=== PATIENT | female | born 1950 | race Caucasian/White ===

== ENCOUNTER → 2016-09-27 | Outpatient (CLI) | payer BC ==
--- NOTE | 2016-09-27 10:49 | XR ---
EXAMINATION TYPE: XR chest 2V DATE OF EXAM: 09/27/2016 10:42 AM COMPARISON: NONE TECHNIQUE: PA and lateral views submitted. HISTORY: Productive cough FINDINGS: The lungs are clear and there is no pneumothorax, pleural effusion, or focal pneumonia. Calcified g ranuloma noted in the left upper lobe. Surgical clips in the abdomen. IMPRESSION: 1. No acute process.
== END | disposition home or self-care (01) ==
LOC: RADXRMAIN 10:20
PROVIDERS: ATTEND Internal Medicine
DX: J06.9 Acute upper respiratory infection, unspecified (principal)
CPT/HCPCS: 71020

== ENCOUNTER → 2016-10-21 | Outpatient (CLI) | payer BC ==
[2016-10-21 10:27] LABS: ALT 25 U/L (9-52); AST 28 U/L (14-36); Alkaline Phosphatase 65 U/L (38-126); Anion Gap 12 mmol/L; Blood Urea Nitrogen 16 mg/dL (7-17); Calcium 9.6 mg/dL (8.4-10.2); Carbon Dioxide 27 mmol/L (22-30); Chloride 104 mmol/L (98-107); Cholesterol 196 mg/dL (<200); Glucose 84 mg/dL (74-99); HDL Cholesterol 76 mg/dL (40-60); Non-African American GFR(MDRD) >60 (>60 ml/min/1.73 sqM); Potassium 4.4 mmol/L (3.5-5.1); Sodium 143 mmol/L (137-145); Total Bilirubin 0.6 mg/dL (0.2-1.3); Total Protein 7.3 g/dL (6.3-8.2); Triglycerides 162 mg/dL (<150)
== END | disposition home or self-care (01) ==
LOC: LABWHC1 09:55
PROVIDERS: ATTEND Internal Medicine
DX: I10 Essential (primary) hypertension (principal); E78.2 Mixed hyperlipidemia
CPT/HCPCS: 36415; 80053; 80061

== ENCOUNTER → 2016-12-27 | Outpatient (CLI) | payer BC ==
--- NOTE | 2016-12-27 15:23 | US ---
EXAMINATION TYPE: US venous doppler duplex LE LT DATE OF EXAM: 12/27/2016 3:01 PM COMPARISON: NONE CLINICAL HISTORY: 729.81 SWELLING OF LIMB, R22.42. SIDE PERFORMED: Left TECHNIQUE: The lower extremity deep venous system is examined utilizing real time linear array sonog maris with graded compression, doppler sonography and color-flow sonography. VESSELS IMAGED: External Iliac Vein (EIV) Common Femoral Vein Deep Femoral Vein Greater Saphenous Vein * Femoral Vein Popliteal Vein Proximal Calf Veins (* superficial vessels) Left Leg: Negative for DVT IMPRESSION: 1. Left lower extremity negative for deep venous thrombosis.
== END | disposition home or self-care (01) ==
LOC: RADUSWWP 14:29
PROVIDERS: ATTEND Internal Medicine
DX: R22.42 Localized swelling, mass and lump, left lower limb (principal)

== ENCOUNTER → 2018-11-28 | Outpatient (CLI) | payer MEDICARE, OTHER ==
--- NOTE | 2018-11-29 12:22 | MM ---
Reason for exam: screening (asymptomatic). Last mammogram was performed 1 year and 4 months ago. History: Patient is postmenopausal. Took estrogen for 22 years beginning at age 44. Physical Findings: A clinical breast exam by your physician is recommended on an annual basis and results should be correlated with mammographic findings. MG Screening Mammo w CAD Bilateral CC and MLO view(s) were taken. XCCL view(s) were taken of the left breast. Prior study comparison: July 31, 2017, bilateral MG screening mammo w CAD. June 15, 2016, bilateral MG screening mammo w CAD. There are scattered fibroglandular densities. There is no discrete abnormality. No significant changes when compared with prior studies. ASSESSMENT: Negative, BI-RAD 1 RECOMMENDATION: Routine screening mammogram of both breasts in 1 year.
== END ==
LOC: RADMAMWWP 10:51
PROVIDERS: ATTEND Internal Medicine
DX: Z12.31 Encounter for screening mammogram for malignant neoplasm of breast (principal)
CPT/HCPCS: 77067

== ENCOUNTER → 2021-06-10 | Outpatient (CLI) | payer MEDICARE, OTHER ==
[2021-06-10 21:27] LABS: Basophils # (A) 0.06 X 10*3/uL (0.00-0.10); Basophils % (A) 0.5 %; Eosinophils # (A) 0.16 X 10*3/uL (0.04-0.35); Eosinophils % (A) 1.4 %; HCT 43.3 % (37.2-46.3); Lymphocytes # (A) 2.73 X 10*3/uL (0.90-5.00); Lymphocytes % (A) 24.2 %; MCHC 32.3 g/dL (32.0-37.0); MCV 92.7 fL (80.0-97.0); Mean Platelet Volume 10.8 fL (9.5-12.2); Monocytes # (A) 0.81 X 10*3/uL (0.20-1.00); Monocytes % (A) 7.2 %; Neutrophils # (A) 7.46 X 10*3/uL (1.80-7.70); Neutrophils % (A) 66.3 %; Platelet Count 309 X 10*3/uL (140-440); RBC 4.67 X 10*6/uL (4.10-5.20); RDW 13.3 % (11.5-14.5); WBC 11.26 X 10*3/uL (4.50-10.00)
== END | disposition home or self-care (01) ==
LOC: LABWHC1 12:38
PROVIDERS: ATTEND Internal Medicine
DX: E78.5 Hyperlipidemia, unspecified (principal)
CPT/HCPCS: 36415; 85025

== ENCOUNTER → 2021-09-29 | Outpatient (CLI) | payer MEDICARE, OTHER ==
--- NOTE | 2021-09-29 15:24 | BD ---
EXAMINATION TYPE: Axial Bone Density DATE OF EXAM: 09/29/2021 COMPARISON: 05.09.2012 CLINICAL HISTORY: 71 YR OLD FEMALE.....ICD-10 CODE: M85.80 OSTEOPOROSIS Height: 60 Weight: 171 FRAX RISK QUESTIONS: Family History (Parent hip fracture): YES Glucocorticoids (More than 3mos): YES (Ex: prednisone, prednisolone, methylprednisolone, dexamethasone, and hydrocortisone). Secondary Osteoporosis: YES 3. Menopause before 45: YES Current Tobacco Use: YES RISK FACTORS HISTORY OF: Family History of Osteoporosis: YES, MOTHER WITH HIP REPLACEMENTS Postmenopausal woman: YES, AT AGE 44 YRS OLD, TOTAL HYST Take estrogen and/or progesterone medications: YES, PREMARIN FOR 27 YEARS NOW, STILL ON THEM Hyperparathyroidism: NO Adrenal Insufficiency: NO MEDICATIONS: Prednisone or other steroids: YES, PREDNISONE, ON AND OFF ALL THE TIME, BOTH ORAL AND INJECTIONS, SKI N CONDITION Additional Medications: BP MEDS, STATINS FOR CHOLESTEROL, VIT D3, ASPIRIN DAILY Additional History: HYPERTENSION, CHOLESTEROL, SKIN CONDITION, EXAM MEASUREMENTS: Bone mineral densitometry was performed using the [employer] System. Bone mineral density as measured about the Lumbar spine is: ----- L1-L4(G/cm2): 1.276 T Score Values are as follows: ----- L1: -0.5 ----- L2: 0.6 ----- L3: 0.3 ----- L4: 2.3 ----- L1-L4: 0.8 Bone mineral density has: Increased 10.8% since study of: 05.09.2012 Bone mineral density about the R hip (g/cm2): 0.889 Bone mineral density about the L hip (g/cm2): 0.884 T Score values are as follows: -----R Neck: -2.1 -----L Neck: -1.5 -----R Total: -0.9 -----L Total: -1.0 Bone mineral density has: Increased 13.1% since study of: 05.09.2012 FRAX%s: THERE IS A 32.7% CHANCE FOR A MAJOR OSTEOPOROTIC FX AND A 17.0% FOR HER HIPS......PROBABIL ITY FOR FX IN 10 YRS TIME IMPRESSION: No evidence for osteoporosis or osteopenia at this time. NOTE: T-SCORE=SD OF THE YOUNG ADULT MEAN.
--- NOTE | 2021-10-01 11:44 | MM ---
Reason for exam: screening (asymptomatic). Last mammogram was performed 2 years and 10 months ago. History: Patient is postmenopausal. Took estrogen for 24 years 10 months beginning at age 44. Physical Findings: A clinical breast exam by your physician is recommended on an annual basis and results should be correlated with mammographic findings. MG 3D Screening Mammo W/Cad Bilateral CC, MLO, and XCCL view(s) were taken. Prior study comparison: November 28, 2018, bilateral MG screening mammo w CAD. July 31, 2017, bilateral MG screening mammo w CAD. There are scattered fibroglandular densities. No significant changes when compared with prior studies. ASSESSMENT: Negative, BI-RAD 1 RECOMMENDATION: Routine screening mammogram of both breasts in 1 year.
== END | disposition home or self-care (01) ==
LOC: RADMAMWWP 12:56
PROVIDERS: ATTEND Internal Medicine
DX: Z12.31 Encounter for screening mammogram for malignant neoplasm of breast (principal); Z78.0 Asymptomatic menopausal state
CPT/HCPCS: 77063; 77067; 77080

== ENCOUNTER → 2021-10-08 | Outpatient (CLI) | payer MEDICARE, OTHER ==
--- NOTE | 2021-10-12 14:02 | PE ---
Nuclear medicine PET/CT HISTORY: Solitary pulmonary nodule, initial Patient received 7.1 mCi F-18 FDG intravenously in delayed scanning was performed from the skull base to the mid thighs. Localization and attenuation correction CT scan was performed. No comparisons Average mediastinal uptake approximately SUV 2.4, liver SUV 4.1 : No cervical or supraclavicular adenopathy. CHEST: Right axillary lymph node shows associated hypermetabolic uptake. SUV is 3.7. Right lower lobe lung nodule measures approximately 17 mm. SUV is 2.0. There is no mediastinal or hilar adenopathy. No endobronchial lesion, pleural or pericardial effusion . ABDOMEN: There is no liver mass or adrenal mass. No retroperitoneal adenopathy or ascites. Patient is post cholecystectomy. No suspicious uptake. Uptake along the bowel is felt likely to be physiologic. Diverticular changes associated with the sigmoid colon. Uterus and adnexal structures are not seen. No pelvic adenopathy or free fluid. IMPRESSION: Right axillary uptake is indeterminate, findings could be reactive, correlate. Right lowe r lobe lung nodule as described.
== END | disposition home or self-care (01) ==
LOC: RADPETMAIN 13:26
PROVIDERS: ATTEND Internal Medicine
DX: R91.1 Solitary pulmonary nodule (principal)
CPT/HCPCS: 78815; A9552

== ENCOUNTER → 2022-06-02 | Outpatient (CLI) | payer MEDICARE, OTHER ==
--- NOTE | 2022-06-02 14:32 | CT ---
EXAMINATION TYPE: CT chest wo con CT DLP: 362.8 mGycm, Automated exposure control for dose reduction was used. DATE OF EXAM: 06/02/2022 1:37 PM COMPARISON: PET CT 10/08/2021. CLINICAL INDICATION:Female, 71 years old with history of R91.1 Solitary pulmonary nodule; TECHNIQUE: Multiple axial images were obtained through the chest without IV contrast. Lack of IV or o ral contrast limits evaluation of solid and hollow organ viscera. Coronal and sagittal reformats revi ewed. FINDINGS: LUNGS/ PLEURA: No pneumothorax, pleural effusion, focal consolidation. Stable right lower lobe 1.6 cm and 0.2 cm pulmonary nodules (series 4, image 32). No new or enlarging pulmonary nodules. AIRWAY: Patent and unremarkable.. HEART: Size within normal limits. No pericardial effusion. MEDIASTINUM: No gross evidence of adenopathy. VASCULATURE: No aortic aneurysm. Atherosclerotic calcification of the aorta. MUSCULOSKELETAL: No acute osseous abnormalities. Mild degenerative disc disease. SOFT TISSUES/LYMPH NODES: Unremarkable. LOWER NECK: No significant findings. UPPER ABDOMEN: Post cholecystectomy. IMPRESSION: Stable right lower lobe pulmonary nodules. No new or enlarging pulmonary nodules. Follow-up CT chest examination in 6-12 months is recommended.
--- NOTE | 2022-06-07 08:56 | US ---
EXAMINATION TYPE: US arterial LE single level DATE OF EXAM: 06/02/2022 1:06 PM CLINICAL HISTORY: I73.9 PAD. Left foot tingling and tightness. Doppler Waveforms: Right: Multiphasic Left: Multiphasic: Pressure Gradients: No significant gradient Ankle-Brachial Indices: Right: 1.1 Left: 1.1 Toe Brachial Indices: Right: 0.7 Left: 0.6 IMPRESSION: Normal ankle-brachial index bilaterally
== END | disposition home or self-care (01) ==
LOC: RADUSWWP 12:10
PROVIDERS: ATTEND Internal Medicine
DX: I73.9 Peripheral vascular disease, unspecified (principal); R91.8 Other nonspecific abnormal finding of lung field
CPT/HCPCS: 71250; 93922

== ENCOUNTER → 2022-12-14 | Outpatient (CLI) | payer MEDICARE, OTHER ==
--- NOTE | 2022-12-14 13:36 | CT ---
EXAMINATION TYPE: CT chest wo con DATE OF EXAM: 12/14/2022 COMPARISON: Prior CT June 02, 2022 and PET/CT October 08, 2021 HISTORY: nodules CT DLP: 381.2 mGycm. Automated Exposure Control for Dose Reduction was Utilized. TECHNIQUE: CT scan of the thorax is performed without IV contrast. FINDINGS: LUNGS: Stable 1.5 x 1.4 cm right lower lobe central pulmonary nodule axial image 32 from prior 2 stud ies. Mild left basilar linear scarring redemonstrated. Mild right basilar linear scarring anteriorly also again seen. No new or enlarging greater than 5 mm pulmonary nodules. No pleural effusion or pneu mothorax noted bilaterally. MEDIASTINUM: Lack of IV contrast is noted to limit evaluation for mediastinal and especially hilar ad enopathy. There are stable prominent but subcentimeter mediastinal lymph nodes. No cardiomegaly or pericardial effusion is seen. Prominent main pulmonary artery redemonstrated. Coronary artery calcifi cation again seen. OTHER: Cholecystectomy clips are redemonstrated. IMPRESSION: Stable 1.5 cm right lower lobe nodule. No new or enlarging nodules. Consider repeat CT in one year time to document greater than 2 years stability.
== END | disposition home or self-care (01) ==
LOC: RADCTMAIN 12:43
PROVIDERS: ATTEND Internal Medicine
DX: R91.1 Solitary pulmonary nodule (principal)
CPT/HCPCS: 71250

== ENCOUNTER → 2022-12-14 | Outpatient (CLI) | payer MEDICARE, OTHER ==
--- NOTE | 2022-12-15 09:13 | MM ---
Reason for Exam: Screening (asymptomatic). Last mammogram was performed 1 year(s) and 3 month(s) ago. Patient History: Menarche at age 12. First Full-Term at age 23. Left ovary removed at age 43. Right ovary removed at age 43. Hysterectomy at age 43. Postmenopausal. Currently using Estrogen, beginning at age 44 for 24 years, 10 months. Risk Values: Rubia 5 year model risk: 1.6%. NCI Lifetime model risk: 4.1%. Prior Study Comparison: 07/31/2017 Bilateral Screening Mammogram, [facility]. 11/28/2018 Bilateral Screening Mammogram, [facility]. 09/29/2021 Bilateral Screening Mammogram, [facility]. Tissue Density: There are scattered fibroglandular densities. Findings: Analyzed By CAD. There are a few loosely grouped benign-appearing round calcifications in the anterior aspect of the bilateral breasts redemonstrated. There is no suspicious group of microcalcifications or new suspicious mass in either breast. Overall Assessment: Benign, BI-RAD 2 Management: Screening Mammogram of both breasts in 1 year. . Patient should continue monthly self-breast exams. A clinical breast exam by your physician is recommended on an annual basis. This exam should not preclude additional follow-up of suspicious palpable abnormalities. Note on Rubia scores and lifetime risk: 1. A Rubia score greater than 3% is considered moderate risk. If this is the case, consider specialist referral to assess eligibility for a risk reducing agent. 2. If overall lifetime risk for the development of breast cancer is 20% or higher, the patient may qualify for future screening with alternating mammogram and breast MRI. Electronically signed and approved by: Pradeep He M.D.
== END | disposition home or self-care (01) ==
LOC: RADMAMWWP 12:56
PROVIDERS: ATTEND Internal Medicine
DX: Z12.31 Encounter for screening mammogram for malignant neoplasm of breast (principal); Z78.0 Asymptomatic menopausal state
CPT/HCPCS: 77063; 77067

== ENCOUNTER → 2023-12-21 | Outpatient (CLI) | payer MEDICARE ==
--- NOTE | 2023-12-21 14:44 | CTL ---
EXAMINATION TYPE: CT Low Dose Lung DATE OF EXAM ORDERED: 12/21/2023 HISTORY: Lung cancer screening CT DLP: 115.[address] CTDI: 3.5 mGy Automated exposure control for dose reduction was used. COMPARISON: 12/14/2022 TECHNIQUE: Low dose computed tomography scan was performed through the chest at 1 mm thick sections a nd reconstructed images in multiple planes at 1 mm and [address] DIAGNOSTIC QUALITY: Satisfactory FINDINGS: The well circumscribed 15 mm nodule right upper lobe is again seen and is stable. There 2 or 3 scatte red stable micronodules. There is no new suspicious lung mass or nodule. There is no abnormal airspace/consolidative density or abnormal interstitial density. There is no pleural effusion or pneumothorax. The great vessel the chest are normal and there is no mediastinal, hilar or axillary adenopathy. Limited scanning through the upper abdomen reveals cholecystectomy. No focal osseous lesions are seen. IMPRESSION: 1. Lung RADS category 2 benign findings. Continue routine screening at yearly intervals. 2. No acute cardiopulmonary disease
--- NOTE | 2023-12-21 16:49 | BD ---
EXAMINATION TYPE: Axial Bone Density DATE OF EXAM: 12/21/2023 CLINICAL HISTORY: 73 years old Female. ICD-10 CODE: M85.80 OT DISORDER OF BONE DENS Height: 60.25 Weight: 175 FRAX RISK QUESTIONS: Family History (Parent hip fracture): yes History of Fracture in Adulthood: no Secondary Osteoporosis: yes 3. Menopause before 45: yes 43 Current Tobacco Use: yes RISK FACTORS HISTORY OF: Surgery to Spine/Hip(right/left)/Wrist (right/left): no MEDICATIONS: Thyroid Medications: no Osteoporosis Medications: no EXAM MEASUREMENTS: Bone mineral densitometry was performed using the [employer] System. Bone mineral density as measured about the Lumbar spine is: ----- L1-L4(G/cm2): 1.169 T Score Values are as follows: ----- L1: -0.9 ----- L2: 0.5 ----- L3: -0.7 ----- L4: 0.4 ----- L1-L4: -0.1 Z Score Values are as follows: ----- L1: 0.3 ----- L2: 1.7 ----- L3: 0.6 ----- L4: 1.7 ----- L1-L4: 1.2 Bone mineral density has: Decreased -8.4% since study of: 09/29/2021 Bone mineral density about the R hip (g/cm2): 0.930 Bone mineral density about the L hip (g/cm2): 0.868 T Score values are as follows: -----R Neck: -1.9 -----L Neck: -1.7 -----R Total: -0.6 -----L Total: -1.1 Z Score values are as follows: -----R Neck: -0.3 -----L Neck: -0.2 -----R Total: 0.7 -----L Total: 0.2 Bone mineral density has: Increased 1.4% since study of: 09/29/2021 FRAX%s: The graph provided illustrates a 12.0% chance for a major osteoporotic fx and a 3.9% chance f or the hips probability for fx in 10 years time. IMPRESSION: Osteopenia (T Score between -2.5 and -1). There is slightly increased risk of fracture and the patient may be considered for treatment. Re-Screen 2-5 years. NOTE: T-SCORE=SD OF THE YOUNG ADULT MEAN.
--- NOTE | 2023-12-24 15:07 | MM ---
Reason for Exam: Screening (asymptomatic). Last screening mammogram was performed 12 month(s) ago. Patient History: Menarche at age 12. First Full-Term at age 23. Left ovary removed at age 43. Right ovary removed at age 43. Hysterectomy at age 43. Postmenopausal. Currently using Estrogen, beginning at age 44 for 24 years, 10 months. Risk Values: Rubia 5 year model risk: 1.6%. NCI Lifetime model risk: 3.9%. Prior Study Comparison: 11/28/2018 Bilateral Screening Mammogram, [facility]. 09/29/2021 Bilateral Screening Mammogram, [facility]. 12/14/2022 Bilateral MG 3D screening mammo w/cad, [facility]. Tissue Density: The breasts are almost entirely fatty. Findings: Analyzed By CAD. There is no suspicious group of microcalcifications or new suspicious mass in either breast. Overall Assessment: Negative, BI-RAD 1 Management: Screening Mammogram of both breasts in 1 year. . Patient should continue monthly self-breast exams. A clinical breast exam by your physician is recommended on an annual basis. This exam should not preclude additional follow-up of suspicious palpable abnormalities. Note on Rubia scores and lifetime risk: 1. A Rubia score greater than 3% is considered moderate risk. If this is the case, consider specialist referral to assess eligibility for a risk reducing agent. 2. If overall lifetime risk for the development of breast cancer is 20% or higher, the patient may qualify for future screening with alternating mammogram and breast MRI. Electronically signed and approved by: Marianna Bah M.D. Radiologist
== END | disposition home or self-care (01) ==
LOC: RADMAMWWP 12:42
PROVIDERS: ATTEND Internal Medicine
DX: Z12.31 Encounter for screening mammogram for malignant neoplasm of breast (principal); M85.89 Other specified disorders of bone density and structure, multiple sites; R91.1 Solitary pulmonary nodule; Z78.0 Asymptomatic menopausal state; F17.210 Nicotine dependence, cigarettes, uncomplicated
CPT/HCPCS: 71271; 77063; 77067; 77080

== ENCOUNTER → 2024-07-24 | Outpatient (CLI) | payer MEDICARE ==
--- NOTE | 2024-07-24 17:50 | US ---
EXAMINATION TYPE: US venous doppler duplex LE DATE OF EXAM: 07/24/2024 5:27 PM COMPARISON: NONE CLINICAL INDICATION: Female, 73 years old with history of M79.89 OTHER SPECIFIED SOFT TISSUE DISORDER S; Patient states ankle swelling. No pain. Pt has no hx dvt. Not on thinners, TECHNIQUE: The lower extremity deep venous system is examined utilizing real time linear array sonog maris with graded compression, color doppler sonography, and spectral doppler. SIDE PERFORMED: Bilateral FINDINGS: VESSELS IMAGED: Common Femoral Vein Deep Femoral Vein Greater Saphenous Vein * Femoral Vein Popliteal Vein Small Saphenous Vein * Proximal Calf Veins (* superficial vessels) Right Leg: Appears negative for DVT, Color Doppler imaging shows patency of the vessels. Spectral wa veforms are within normal limits. Left Leg: Appears negative for DVT, Color Doppler imaging shows patency of the vessels. Spectral wav eforms are within normal limits. IMPRESSION: 1. Bilateral lower extremity ultrasound negative for deep venous thrombosis [facility], , 07/24/2024 5:48 PM
== END | disposition home or self-care (01) ==
LOC: RADUSWWP 16:42
PROVIDERS: ATTEND Internal Medicine
DX: M79.89 Other specified soft tissue disorders (principal)
CPT/HCPCS: 93970

== ENCOUNTER → 2024-12-16 | Outpatient (CLI) | payer MEDICARE ==
--- NOTE | 2024-12-16 13:10 | XR ---
EXAMINATION TYPE: XR chest 2V DATE OF EXAM: 12/16/2024 12:47 PM COMPARISON: 09/27/[address] 12/14/2022 CLINICAL INDICATION: Female, 74 years old with history of J20.9 J42, cough and congestion TECHNIQUE: Frontal and lateral views FINDINGS: Heart normal size. Mild atherosclerotic arch calcifications. Mild central peribronchial cuffing. Poss ible nodular density at the medial right base. Otherwise, no consolidation or pleural effusion. Jyoti cystectomy clips. IMPRESSION: 1. COPD. Some central peribronchial cuffing could reflect bronchitis or asthma. 2. Stable underlying known nodule at the medial right base. [facility], Workstation: [facility], 12/16/2024 1:08 PM
== END | disposition home or self-care (01) ==
LOC: RADXRMAIN 12:06
PROVIDERS: ATTEND Internal Medicine
DX: J44.9 Chronic obstructive pulmonary disease, unspecified (principal); J20.9 Acute bronchitis, unspecified; R91.1 Solitary pulmonary nodule
CPT/HCPCS: 71046

== ENCOUNTER 2025-03-01 07:52 | Observation (INO) | payer MEDICARE ==
--- NOTE | 2025-03-01 08:21 | ED ---
General Adult HPI - General Chief complaint: Abdominal Pain Stated complaint: Abd pain, nausea Time Seen by Provider: 03/01/25 08:04 Source: patient, RN notes reviewed, old records reviewed Mode of arrival: ambulatory Limitations: no limitations - History of Present Illness Initial comments: Patient is a 74-year-old female who presents emergency department complaining of right lower quadrant abdominal pain. Has a history of a hysterectomy, hypertension, hyperlipidemia. States abdominal pain started at approximately 5:30 AM on 02/28/2025 which was over 24 hours ago. Has not improved. Has intermittent nausea with nonbilious nonbloody emesis as well as intermittent diarrhea with nonbloody diarrhea. Denies any urinary complaints. Denies any vaginal discharge or bleeding. Has no other acute complaints at this time. Also has a history of a cholecystectomy. Denies chest pain, shortness of breath, fevers, chills, cough. - Related Data Allergies Allergy/AdvReac Type Severity Reaction Status Date / Time acetaminophen Allergy Vomiting Verified 03/01/25 08:00 [From Darvocet-N 100] codeine Allergy Vomiting Verified 03/01/25 08:00 propoxyphene Allergy Vomiting Verified 03/01/25 08:00 [From Darvocet-N 100] Review of Systems ROS Statement: Those systems with pertinent positive or pertinent negative responses have been documented in the HPI. Review of Systems: CONST: Denies fever EYES: Denies blurry vision ENT: Denies nasal congestion C/V: Denies Chest pain RESP: Denies shortness of breath GI: Endorses abdominal pain : Denies dysuria SKIN: Denies rash. MSK: Denies joint pain. NEURO: Denies headache ROS Other: All systems not noted in ROS Statement are negative. Past Medical History Past Medical History: Hyperlipidemia, Hypertension Past Surgical History: Cholecystectomy, Hysterectomy Smoking Status: Current every day smoker General Exam - General Exam Comments Initial Comments: General: Appears in mild to moderate distress as she is actively having an episode of emesis. HEAD: Normal with no signs of head trauma. EYES: EOMI. ENT: Hearing grossly intact, normal oropharynx. RESPIRATORY: Clear breath sounds bilaterally. No wheezes, rales, or rhonchi. C/V: Regular rate and rhythm. S1 and S2 auscultated, no edema, peripheral pulses 2+ and intact throughout ABD: Abdomen soft, nondistended. Tender to palpation in the right lower quadrant. No guarding or rebound tenderness. No peritoneal signs. EXT: No obvious deformity. SKIN: No rashes or lesions observed on exposed skin. NEURO: Alert and oriented x 4. Limitations: no limitations Course Vital Signs 03/01/25 03/01/25 03/01/25 07:56 08:39 09:23 Temperature 97.6 F 97.6 F Pulse Rate 77 60 Respiratory 16 19 19 Rate Blood Pressure 163/70 152/92 O2 Sat by Pulse 95 96 Oximetry 03/01/25 10:10 Temperature Pulse Rate 63 Respiratory 17 Rate Blood Pressure 134/7 O2 Sat by Pulse 95 Oximetry Medical Decision Making - Medical Decision Making Was pt. sent in by a medical professional or institution (, PA, JAVA ARCHITECT, urgent care, hospital, or fdc...) When possible be specific @ -No Did you speak to anyone other than the patient for history (EMS, parent, family, police, friend...)? What history was obtained from this source @ -No Did you review nursing and triage notes (agree or disagree)? Why? @ -I reviewed and agree with nursing and triage notes Were old charts reviewed (outside hosp., previous admission, EMS record, old EKG, old radiological studies, urgent care reports/EKG's, fdc records)? Report findings @ -No old charts were reviewed Differential Diagnosis (chest pain, altered mental status, abdominal pain women, abdominal pain men, vaginal bleeding, weakness, fever, dyspnea, syncope, headache, dizziness, GI bleed, back pain, seizure, CVA, palpatations, mental health, musculoskeletal)? @ -Differential Abdominal Pain Women: Appendicitis, Cholecystitis, diverticulosis, ischemic bowel, pancreatitis, hepatitis, UTI, gastroenteritis, AAA, incarcerated hernia, bowel obstruction, constipation, inflammatory bowel, hepatitis, peptic ulcer disease, splenic infarction, perforated viscus, vulvitis, ovarian torsion, PID, kidney stone, placenta abruption, this is not meant to be an all-inclusive list EKG interpreted by me (3pts min.). @ -As above X-rays interpreted by me (1pt min.). @ -None done CT interpreted by me (1pt min.). @ -CT abdomen pelvis shows no obvious acute intra-abdominal process to explain the patient's current symptoms. U/S interpreted by me (1pt. min.). @ -None done What testing was considered but not performed or refused? (CT, X-rays, U/S, labs)? Why? @ -None What meds were considered but not given or refused? Why? @ -None Did you discuss the management of the patient with other professionals (professionals i.e. , PA, JAVA ARCHITECT, lab, RT, psych nurse, geriatric social work professor, dermatology nurse, teacher, strike warfare/missile systems officer, rn case manager hospice)? Give summary @ -I spoke with the admitting provider, Dr. Garza who accepted the admission. Was smoking cessation discussed for >3mins.? @ -No Was critical care preformed (if so, how long)? @ -No Were there social determinants of health that impacted care today? How? (Homelessness, low income, unemployed, alcoholism, drug addiction, transporta tion, low edu. Level, literacy, decrease access to med. care, correction, rehab)? @ -No Was there de-escalation of care discussed even if they declined (Discuss DNR or withdrawal of care, Hospice)? DNR status @ -No What co-morbidities impacted this encounter? (DM, HTN, Smoking, COPD, CAD, Cancer, CVA, ARF, Chemo, Hep., AIDS, mental health diagnosis, sleep apnea, morbid obesity)? @ -Hysterectomy, cholecystectomy Was patient admitted / discharged? Hospital course, mention meds given and route, prescriptions, significant lab abnormalities, going to OR and other pertinent info. @ -Presents with right lower quadrant abdominal pain. Will obtain CT abdomen pelvis as well as abdominal laboratory studies. Patient administered IV fluids, Zofran, Protonix, Toradol for symptomatic control. She was in agreement this plan. Vitals are within acceptable limits. Laboratory studies returned remarkable for elevated cell counts likely secondary to dehydration with lactic acid also slightly elevated likely secondary to dehydration. Patient administered additional IV fluids. Urinalysis negative. Remainder the labs relatively unremarkable. CT imaging obtained and showed no obvious acute intra-abdominal process to explain the patient's current symptoms. EKG shows no signs of acute ischemia. On reevaluation, patient has received multiple doses of analgesic medications. I discussed discharge versus admission and we will observe the patient for intractable abdominal pain with nausea vomiting diarrhea and dehydration. Will continue with IV fluids. Consult placed to surgery for input. Patient was in agreement this plan. I spoke with the admitting provider, Dr. Garza who accepted the admission. Undiagnosed new problem with uncertain prognosis? @ -No Drug Therapy requiring intensive monitoring for toxicity (Heparin, Nitro, Insulin, Cardizem)? @ -No Were any procedures done? @ -No Diagnosis/symptom? @ -Intractable abdominal pain, dehydration, nausea vomiting and diarrhea Acute, or Chronic, or Acute on Chronic? @ -Acute Uncomplicated (without systemic symptoms) or Complicated (systemic symptoms)? @ -Complicated Side effects of treatment? @ -None Exacerbation, Progression, or Severe Exacerbation] @ -No Poses a threat to life or bodily function? @ -Potentially, yes - Lab Data Result diagrams: 03/01/25 08:26 03/01/25 08:26 Lab Results 03/01/25 03/01/25 03/01/25 Range/Units 08:26 08:26 08:26 WBC 14.29 H (4.50-10.00) 10*3/uL RBC 5.41 H (4.10-5.20) 10*6/uL Hgb 16.4 H (12.0-15.0) g/dL Hct 47.0 H (37.2-46.3) % MCV 86.9 (80.0-97.0) fL MCH 30.3 (27.0-32.0) pg MCHC 34.9 (32.0-37.0) g/dL Plt Count 346 (140-440) 10*3/uL MPV 9.4 L (9.5-12.2) fL Immature Gran % (Auto) 0.6 % Neutrophils % 78.5 % Lymphocytes % 13.7 % Monocytes % 5.9 % Eosinophils % 0.8 % Basophils % 0.5 % Immature Gran # 0.08 H (0.00-0.04) 10*3/uL Neutrophils # 11.22 H (1.80-7.70) 10*3/uL Lymphocytes # 1.96 (0.90-5.00) 10*3/uL Monocytes # 0.84 (0.20-1.00) 10*3/uL Eosinophils # 0.12 (0.04-0.35) 10*3/uL Basophils # 0.07 (0.00-0.10) 10*3/uL PT 10.6 (10.0-12.5) sec INR 1.0 (<1.2) APTT 23.5 (22.0-30.0) sec Sodium 137 (137-145) mmol/L Potassium 3.4 L (3.5-5.1) mmol/L Chloride 96 L (98-107) mmol/L Carbon Dioxide 31 H (22-30) mmol/L Anion Gap 10 mmol/L BUN 16 (7-17) mg/dL Creatinine 0.74 (0.52-1.04) mg/dL Est GFR (CKD-EPI)AfAm >90 (>60 ml/min/1.73 sqM) Est GFR (CKD-EPI)NonAf 81 (>60 ml/min/1.73 sqM) Glucose 118 H (74-99) mg/dL Lactic Ac Sepsis Rflx Plasma Lactic Acid Ayan (0.7-2.0) mmol/L Calcium 9.8 (8.4-10.2) mg/dL Total Bilirubin 1.0 (0.2-1.3) mg/dL AST 33 (14-36) U/L ALT 18 (4-34) U/L Alkaline Phosphatase 89 (38-126) U/L Total Protein 7.6 (6.3-8.2) g/dL Albumin 4.5 (3.5-5.0) g/dL Amylase 62 (30-110) U/L Lipase 230 (23-300) U/L Urine Color Urine Appearance (Clear) Urine pH (5.0-8.0) Ur Specific [place] (1.001-1.035) Urine Protein (Negative) Urine Glucose (UA) (Negative) Urine Ketones (Negative) Urine Blood (Negative) Urine Nitrite (Negative) Urine Bilirubin (Negative) Urine Urobilinogen (<2.0) mg/dL Ur Leukocyte Esterase (Negative) Urine RBC (0-5) /hpf Urine WBC (0-5) /hpf Ur Squamous Epith Cells (0-4) /hpf Urine Mucus (None) /hpf 03/01/25 03/01/25 03/01/25 Range/Units 08:26 08:53 10:11 WBC (4.50-10.00) 10*3/uL RBC (4.10-5.20) 10*6/uL Hgb (12.0-15.0) g/dL Hct (37.2-46.3) % MCV (80.0-97.0) fL MCH (27.0-32.0) pg MCHC (32.0-37.0) g/dL Plt Count (140-440) 10*3/uL MPV (9.5-12.2) fL Immature Gran % (Auto) % Neutrophils % % Lymphocytes % % Monocytes % % Eosinophils % % Basophils % % Immature Gran # (0.00-0.04) 10*3/uL Neutrophils # (1.80-7.70) 10*3/uL Lymphocytes # (0.90-5.00) 10*3/uL Monocytes # (0.20-1.00) 10*3/uL Eosinophils # (0.04-0.35) 10*3/uL Basophils # (0.00-0.10) 10*3/uL PT (10.0-12.5) sec INR (<1.2) APTT (22.0-30.0) sec Sodium (137-145) mmol/L Potassium (3.5-5.1) mmol/L Chloride (98-107) mmol/L Carbon Dioxide (22-30) mmol/L Anion Gap mmol/L BUN (7-17) mg/dL Creatinine (0.52-1.04) mg/dL Est GFR (CKD-EPI)AfAm (>60 ml/min/1.73 sqM) Est GFR (CKD-EPI)NonAf (>60 ml/min/1.73 sqM) Glucose (74-99) mg/dL Lactic Ac Sepsis Rflx Y Plasma Lactic Acid Ayan 2.5 H* (0.7-2.0) mmol/L Calcium (8.4-10.2) mg/dL Total Bilirubin (0.2-1.3) mg/dL AST (14-36) U/L ALT (4-34) U/L Alkaline Phosphatase (38-126) U/L Total Protein (6.3-8.2) g/dL Albumin (3.5-5.0) g/dL Amylase (30-110) U/L Lipase (23-300) U/L Urine Color Colorless Urine Appearance Clear (Clear) Urine pH 6.0 (5.0-8.0) Ur Specific [place] 1.050 H (1.001-1.035) Urine Protein Negative (Negative) Urine Glucose (UA) Negative (Negative) Urine Ketones Negative (Negative) Urine Blood Trace H (Negative) Urine Nitrite Negative (Negative) Urine Bilirubin Negative (Negative) Urine Urobilinogen <2.0 (<2.0) mg/dL Ur Leukocyte Esterase Negative (Negative) Urine RBC 2 (0-5) /hpf Urine WBC <1 (0-5) /hpf Ur Squamous Epith Cells 1 (0-4) /hpf Urine Mucus Rare H (None) /hpf - EKG Data -: EKG Interpreted by Me EKG Comments: 12-lead Electrocardiogram Interpretation Note EKG was reviewed and interpreted by myself. 12-lead ECG performed at 0838 is interpreted by me as revealing normal sinus rhythm at a rate of 63 beats per minute. [place] is normal. SD interval is 165 ms, QRS durations 114 ms, QTc is 431 ms.. There were no ST or T wave abnormalities to suggest myocardial ischemia or injury. R wave progression across the precordium was satisfactory. By my interpretation this EKG is non-diagnostic for acute ischemia. Disposition Clinical Impression: Intractable abdominal pain, Dehydration, Nausea vomiting and diarrhea Disposition: ADMITTED IP TO THIS HOSP Condition: Stable Referrals: Drew Ghotra DO [Primary Care Provider] - 1-2 days Time of Disposition: 11:15
[2025-03-01] MEDS: SODIUM CHLORIDE 0.9% 1,000 ML IV ONE (08:31)
[2025-03-01] MEDS: KETOROLAC 15 MG/ML 1 ML VIAL IVP STA (08:31)
[2025-03-01] MEDS: ONDANSETRON 4 MG/2 ML VIAL IVP STA (08:33)
[2025-03-01] MEDS: PANTOPRAZOLE 40 MG/10 ML VIAL IVP STA (08:34)
[2025-03-01 08:37] LABS: Basophils # (A) 0.07 10*3/uL (0.00-0.10); Basophils % (A) 0.5 %; Eosinophils # (A) 0.12 10*3/uL (0.04-0.35); Eosinophils % (A) 0.8 %; HCT 47.0 % (37.2-46.3); HGB 16.4 g/dL (12.0-15.0); Lymphocytes # (A) 1.96 10*3/uL (0.90-5.00); Lymphocytes % (A) 13.7 %; MCH 30.3 pg (27.0-32.0); MCHC 34.9 g/dL (32.0-37.0); MCV 86.9 fL (80.0-97.0); Monocytes # (A) 0.84 10*3/uL (0.20-1.00); Monocytes % (A) 5.9 %; Neutrophils # (A) 11.22 10*3/uL (1.80-7.70); Neutrophils % (A) 78.5 %; Platelet Count 346 10*3/uL (140-440); RBC 5.41 10*6/uL (4.10-5.20); RDW 13.4 % (11.5-14.5); WBC 14.29 10*3/uL (4.50-10.00)
[2025-03-01 08:46] LABS: INR 1.0 (<1.2); Partial Thromboplastin Time 23.5 sec (22.0-30.0); Prothrombin Time 10.6 sec (10.0-12.5)
[2025-03-01 08:49] LABS: ALT 18 U/L (4-34); African American GFR (CKD) >90 (>60 ml/min/1.73 sqM); Albumin 4.5 g/dL (3.5-5.0); Amylase 62 U/L (30-110); Anion Gap 10 mmol/L; Blood Urea Nitrogen 16 mg/dL (7-17); Calcium 9.8 mg/dL (8.4-10.2); Carbon Dioxide 31 mmol/L (22-30); Chloride 96 mmol/L (98-107); Glucose 118 mg/dL (74-99); Lipase 230 U/L (23-300); Non-African American GFR(CKD) 81 (>60 ml/min/1.73 sqM); Sodium 137 mmol/L (137-145); Total Protein 7.6 g/dL (6.3-8.2)
[2025-03-01 08:51] LABS: Potassium 3.4 mmol/L (3.5-5.1)
[2025-03-01 08:52] LABS: AST 33 U/L (14-36); Alkaline Phosphatase 89 U/L (38-126)
[2025-03-01] MEDS: LACTATED RINGERS 1,000 ML IV ONE (09:23)
--- NOTE | 2025-03-01 09:29 | CT ---
EXAMINATION TYPE: CT abdomen pelvis w con CT DLP: 1186.6 mGycm, Automated exposure control for dose reduction was used. DATE OF EXAM: 03/01/2025 9:16 AM COMPARISON: PET CT 10/08/2021 CLINICAL INDICATION:Female, 74 years old with history of abdominal pain. RLQ with N/v/d; RLQ abdomina l pain. N/V/D. TECHNIQUE: Standard CT of the abdomen and pelvis following the administration of 100 cc of Isovue 3 00 IV contrast material. Coronal and sagittal reformats were performed. FINDINGS: LOWER CHEST: Minimal bilateral lower lobe strandy atelectasis. Minimal partial visualization of known right lower lobe pulmonary nodule. ABDOMEN LIVER: Unremarkable GALLBLADDER AND BILE DUCTS: The gallbladder is surgically absent. No significant biliary duct dilatat ion. PANCREAS: Unremarkable. SPLEEN: Unremarkable. ADRENAL GLANDS: Unremarkable. KIDNEYS AND URETERS: No evidence of hydronephrosis or renal calculus. The kidneys enhance symmetrical ly. Contrast is demonstrated within both collecting systems on the delayed phase. PELVIS BLADDER: Incompletely distended but grossly unremarkable. REPRODUCTIVE: The uterus is surgically absent. ABDOMEN & PELVIS STOMACH AND BOWEL: Stomach and duodenum are unremarkable. Sigmoid diverticulosis without evidence for acute diverticulitis. No focal bowel wall thickening or surrounding inflammatory changes. The append ix is not definitively identified however there is no significant inflammatory changes within the rig ht lower quadrant. No evidence of bowel obstruction. PERITONEUM: No evidence of pneumoperitoneum or free fluid. VASCULATURE: Mild to moderate atherosclerotic calcifications are present throughout the abdominal aor ta and its branches. No evidence of aortic aneurysm. Few pelvic phleboliths. MUSCULOSKELETAL: No acute osseous abnormalities. Grade 1 anterolisthesis of L3 on L4 without pars def ects. Moderate degenerative disc disease at L4-L5 with disc space narrowing, endplate sclerosis, vacu um disc disease and anterior osteophytosis. LYMPH NODES: No evidence for lymphadenopathy. SOFT TISSUE/ABDOMINAL WALL: Small fat filled umbilical hernia. IMPRESSION: 1. No CT evidence for acute abdominal/pelvic process. The appendix is not definitively visualized ho wever there is no significant inflammatory changes within the right lower quadrant. 2. Sigmoid diverticulosis without evidence for acute diverticulitis. [facility], , 03/01/2025 9:27 AM
[2025-03-01] MEDS: HYDROmorphone 0.5 MG/0.5 ML SYRINGE IVP STA (10:17)
[2025-03-01 10:33] LABS: Bilirubin,Urine Negative (Negative); Blood,Urine Trace (Negative); Color,Urine Colorless; Glucose,Urine (UA) Negative (Negative); Ketones,Urine Negative (Negative); Leukocyte Esterase,Urine Negative (Negative); Mucus,Urine Rare /hpf; Nitrite,Urine Negative (Negative); PH, Urine 6.0 (5.0-8.0); Protein,Urine Negative (Negative); RBC,Urine 2 /hpf (0-5); Squamous Epithelial Cell,Urine 1 /hpf (0-4); Urobilinogen,Urine <2.0 mg/dL (<2.0); WBC,Urine <1 /hpf (0-5)
[2025-03-01 10:35] LABS: Specific Gravity,Urine 1.050 (1.001-1.035)
[2025-03-01] MEDS ORDERED: NALOXONE 0.4 MG/ML 1 ML VIAL IV PRN (11:17)
[2025-03-01] MEDS ORDERED: KETOROLAC 15 MG/ML 1 ML VIAL IVP PRN (11:17)
[2025-03-01] MEDS: LACTATED RINGERS 1,000 ML IV SCH (12:04)
[2025-03-01] MEDS ORDERED: MORPHINE SULFATE 2 MG/ML SYRINGE IVP PRN (12:07)
--- NOTE | 2025-03-01 12:13 | P.HPIM ---
History of Present Illness H&P Date: 03/01/25 Patient is a 74-year-old female with past medical history of hypertension, hyperlipidemia, tobacco use disorder, known pulmonary nodule, who presented to the ER on 03/01/2025 with lower abdominal pain Pain started hand profiler on 02/28, associated with nausea, episode of NBNB vomiting on 03/01, 2 episodes of loose bowel movement nonbloody, no fevers, chills, dysuria, vaginal discharge. Patient is s/p hysterectomy, cholecystectomy. She was able to tolerate some mashed pedis, gravies, banana yesterday evening, reports decreased appetite. No recent weight changes. No specific alleviating or aggravating factors mentioned. She however noted some improvement in pain after an episode of vomiting, no worsening of symptoms with food intake. On arrival afebrile, heart rate in 70s, blood pressure elevated 163/70, satting well on room air. Lab work showed leukocytosis with WBC count 14.2, erythrocytosis 16.4, normal platelet count, normal coagulation panel, sodium normal, potassium 3.4, bicarb 31, creatinine normal, lactic acid 2.5, bilirubin 1.0, normal AST, ALT, ALP, normal lipase and amylase, UA negative for UTI. CT abdomen with contrast was performed and showed sigmoid diverticulosis without evidence of acute diverticulitis, no focal bowel wall thickening,, no lymphadeno delphine, small fat filled umbilical hernia. Pertinent positives and negatives as discussed in HPI, a complete review of systems was performed and all other systems are negative. Patient seen and examined at bedside. Vital signs reviewed General: nontoxic, no distress, appears at stated age Derm: warm, dry Head: atraumatic, normocephalic, symmetric Eyes: EOMI, no lid lag, anicteric sclera, pupils equal round reactive to light ENT: Nose and ears atraumatic Neck: No thyromegaly, supple Mouth: no lip lesion, mucus membranes moist Cardiovascular: S1S2 reg, no murmur, no edema Lungs: clear to auscultation bilateral, no rhonchi, no rales, no wheeze, no accessory muscle use Abdominal: soft, lower abd tenderness, normal bowel sounds, no guarding, no appreciable organomegaly Ext: no gross muscle atrophy, muscle strength muscle strength 5 out of 5 in all 4 extremities, no contractures Neuro: CN II-XII grossly intact Psych: Alert, oriented, appropriate affect Assessment/Plan: Acute lower abdominal pain Leukocytosis Erythrocytosis Hypokalemia Elevated lactic acid Nausea and vomiting - No CT evidence of acute intra-abdominal pathology - General Surgery consulted, appreciate recommendations -Continue with CLD, advance as tolerated -Protonix 40 IV daily -Continue IV fluids with LR at 100 cc/h -Trend lactate, CBC and CMP in the morning -Check procalcitonin, patient's symptoms are nonspecific, imaging unremarkable, will check D-dimer due to risk factors for mesenteric ischemia in a 70-year-old female with history of smoking, hyperlipidemia. -Symptomatic nausea and vomiting management with Zofran 4 mg IV every 8 hours Hypertension Hyperlipidemia -Home meds are not reconciled Tobacco use disorder, requested nicotine patch, discussed importance of smoking cessation The patient is admitted with an anticipated denisha than 2 midnight stay as observation status for evaluation of abdominal pain, nausea, vomiting. CODE STATUS: DNR/DNI DVT prophylaxis: Lovenox Anticipated discharge date: TBD Anticipated discharge place: [facility] A total of 40 minutes was spent on the care of this complex patient more than 50% of the time was spent in counseling and care coordination. Past Medical History Past Medical History: Hyperlipidemia, Hypertension Past Surgical History: Cholecystectomy, Hysterectomy Smoking Status: Current every day smoker Medications and Allergies Allergies Allergy/AdvReac Type Severity Reaction Status Date / Time acetaminophen Allergy Vomiting Verified 03/01/25 08:00 [From Darvocet-N 100] codeine Allergy Vomiting Verified 03/01/25 08:00 propoxyphene Allergy Vomiting Verified 03/01/25 08:00 [From Darvocet-N 100] Physical Exam Vitals: Vital Signs Temp Pulse Resp BP Pulse Ox 03/01/25 10:10 63 17 134/7 95 03/01/25 09:23 19 03/01/25 08:39 97.6 F 60 19 152/92 96 03/01/25 07:56 97.6 F 77 16 163/70 95 Intake and Output 02/28/25 03/01/25 03/01/25 22:59 06:59 14:59 Other: Weight 77.111 kg Results CBC & Chem 7: 03/01/25 08:26 03/01/25 08:26 Labs: Abnormal Lab Results - Last 24 Hours (Table) 03/01/25 03/01/25 03/01/25 Range/Units 08:26 08:26 08:26 WBC 14.29 H (4.50-10.00) 10*3/uL RBC 5.41 H (4.10-5.20) 10*6/uL Hgb 16.4 H (12.0-15.0) g/dL Hct 47.0 H (37.2-46.3) % MPV 9.4 L (9.5-12.2) fL Immature Gran # 0.08 H (0.00-0.04) 10*3/uL Neutrophils # 11.22 H (1.80-7.70) 10*3/uL Potassium 3.4 L (3.5-5.1) mmol/L Chloride 96 L (98-107) mmol/L Carbon Dioxide 31 H (22-30) mmol/L Glucose 118 H (74-99) mg/dL Plasma Lactic Acid Ayan 2.5 H* (0.7-2.0) mmol/L Ur Specific [place] (1.001-1.035) Urine Blood (Negative) Urine Mucus (None) /hpf 03/01/25 Range/Units 10:11 WBC (4.50-10.00) 10*3/uL RBC (4.10-5.20) 10*6/uL Hgb (12.0-15.0) g/dL Hct (37.2-46.3) % MPV (9.5-12.2) fL Immature Gran # (0.00-0.04) 10*3/uL Neutrophils # (1.80-7.70) 10*3/uL Potassium (3.5-5.1) mmol/L Chloride (98-107) mmol/L Carbon Dioxide (22-30) mmol/L Glucose (74-99) mg/dL Plasma Lactic Acid Ayan (0.7-2.0) mmol/L Ur Specific [place] 1.050 H (1.001-1.035) Urine Blood Trace H (Negative) Urine Mucus Rare H (None) /hpf
[2025-03-01] MEDS: NICOTINE 21MG/24HR PATCH TRANSDERM SCH (12:42)
[2025-03-01 13:17] LABS: Basophils # (A) 0.05 10*3/uL (0.00-0.10); Basophils % (A) 0.3 %; Eosinophils # (A) 0.10 10*3/uL (0.04-0.35); Eosinophils % (A) 0.7 %; HCT 41.2 % (37.2-46.3); HGB 14.1 g/dL (12.0-15.0); Lymphocytes # (A) 2.01 10*3/uL (0.90-5.00); Lymphocytes % (A) 13.9 %; MCH 30.3 pg (27.0-32.0); MCHC 34.2 g/dL (32.0-37.0); MCV 88.6 fL (80.0-97.0); Monocytes # (A) 0.85 10*3/uL (0.20-1.00); Monocytes % (A) 5.9 %; Neutrophils # (A) 11.40 10*3/uL (1.80-7.70); Neutrophils % (A) 78.8 %; Platelet Count 303 10*3/uL (140-440); RBC 4.65 10*6/uL (4.10-5.20); RDW 13.6 % (11.5-14.5); WBC 14.47 10*3/uL (4.50-10.00)
--- NOTE | 2025-03-01 16:13 | XR ---
EXAMINATION TYPE: XR chest 2V DATE OF EXAM: 03/01/2025 3:57 PM COMPARISON: Chest radiograph 12/16/2024. CLINICAL INDICATION: Female, 74 years old with history of Wheezing/ Pneumonia Concern; [facility] TECHNIQUE: XR chest 2V Frontal and lateral views of the chest. FINDINGS: Lungs/Pleura: There is no evidence of pleural effusion, focal consolidation, or pneumothorax. Lungs hyperinflated bilaterally with coarsening of interstitial markings. Pulmonary vascularity: Unremarkable. Heart/mediastinum: Cardiomediastinal silhouette is unremarkable. Musculoskeletal: No acute osseous pathology. Other findings: None IMPRESSION: No acute cardiopulmonary disease/process. [facility], , 03/01/2025 4:11 PM
[2025-03-01] MEDS: HYDROmorphone 0.5 MG/0.5 ML SYRINGE IVP PRN (16:53)
--- NOTE | 2025-03-01 18:16 | P.GSCN ---
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 Patient is s/p hysterectomy, cholecystectomy. She was able to tolerate some mashed pedis, gravies, banana yesterday evening, reports decreased appetite. No recent weight changes. No specific alleviating or aggravating factors mentioned. She however noted some improvement in pain after an episode of vomiting, no worsening of symptoms with food intake. On arrival afebrile, heart rate in 70s, blood pressure elevated 163/70, satting well on room air. Lab work showed leukocytosis with WBC count 14.2, erythrocytosis 16.4, normal platelet count, normal coagulation panel, sodium normal, potassium 3.4, bicarb 31, creatinine normal, lactic acid 2.5, bilirubin 1.0, normal AST, ALT, ALP, normal lipase and amylase, UA negative for UTI. CT abdomen with contrast was performed and showed sigmoid diverticulosis without evidence of acute diverticulitis, no focal bowel wall thickening,, no lymphaden opathy, small fat filled umbilical hernia. Review of Systems - Constitutional Reports as per HPI Past Medical History Past Medical History: Hyperlipidemia, Hypertension History of Any Multi-Drug Resistant Organisms: None Reported Past Surgical History: Cholecystectomy, Hysterectomy Past Anesthesia/Blood Transfusion Reactions: No Reported Reaction Smoking Status: Current every day smoker Medications and Allergies Home Medications Medication Instructions Recorded Confirmed Type Albuterol Sulfate [Ventolin HFA] 2 puff INHALATION RT-QID PRN 03/01/25 03/01/25 History Aspirin EC [Ecotrin Low Dose] 81 mg PO HS 03/01/25 03/01/25 History Atorvastatin [Lipitor] 40 mg PO HS 03/01/25 03/01/25 History Chlorthalidone [Hygroton] 25 mg PO DAILY 03/01/25 03/01/25 History Estrogens, Conjugated [Premarin] 0.625 mg PO DAILY 03/01/25 03/01/25 History amLODIPine [Norvasc] 10 mg PO HS 03/01/25 03/01/25 History Allergies Allergy/AdvReac Type Severity Reaction Status Date / Time acetaminophen Allergy Vomiting Verified 03/01/25 12:31 [From Darvocet-N 100] codeine Allergy Vomiting Verified 03/01/25 12:31 propoxyphene Allergy Vomiting Verified 03/01/25 12:31 [From Darvocet-N 100] Surgical - Exam Osteopathic Statement: *. No significant issues noted on an osteopathic structural exam other than those noted in the History and Physical/Consult. Vital Signs Temp Pulse Resp BP Pulse Ox 97.6 F 77 16 163/70 95 03/01/25 07:56 03/01/25 07:56 03/01/25 07:56 03/01/25 07:56 03/01/25 07:56 General no acute distress alert and oriented x 3 Cardiovascular regular rhythm Pulmonary nonlabored breathing, with audible wheezing bilaterally Abdomen is soft, minimally tender to palpation no guarding or rebound tenderness no signs of surgical abdomen Results - Labs 03/01/25 13:08 03/01/25 08:26 Abnormal Lab Results - Last 24 Hours (Table) 03/01/25 03/01/25 03/01/25 Range/Units 08:26 08:26 08:26 WBC 14.29 H (4.50-10.00) 10*3/uL RBC 5.41 H (4.10-5.20) 10*6/uL Hgb 16.4 H (12.0-15.0) g/dL Hct 47.0 H (37.2-46.3) % MPV 9.4 L (9.5-12.2) fL Immature Gran # 0.08 H (0.00-0.04) 10*3/uL Neutrophils # 11.22 H (1.80-7.70) 10*3/uL D-Dimer (<0.60) mg/L FEU Potassium 3.4 L (3.5-5.1) mmol/L Chloride 96 L (98-107) mmol/L Carbon Dioxide 31 H (22-30) mmol/L Glucose 118 H (74-99) mg/dL Plasma Lactic Acid Ayan 2.5 H* (0.7-2.0) mmol/L Ur Specific [place] (1.001-1.035) Urine Blood (Negative) Urine Mucus (None) /hpf 03/01/25 03/01/25 03/01/25 Range/Units 08:26 10:11 13:08 WBC 14.47 H (4.50-10.00) 10*3/uL RBC (4.10-5.20) 10*6/uL Hgb (12.0-15.0) g/dL Hct (37.2-46.3) % MPV 9.3 L (9.5-12.2) fL Immature Gran # 0.06 H (0.00-0.04) 10*3/uL Neutrophils # 11.40 H (1.80-7.70) 10*3/uL D-Dimer 1.15 H (<0.60) mg/L FEU Potassium (3.5-5.1) mmol/L Chloride (98-107) mmol/L Carbon Dioxide (22-30) mmol/L Glucose (74-99) mg/dL Plasma Lactic Acid Ayan (0.7-2.0) mmol/L Ur Specific [place] 1.050 H (1.001-1.035) Urine Blood Trace H (Negative) Urine Mucus Rare H (None) /hpf Diabetes panel 03/01/25 Range/Units 08:26 Sodium 137 (137-145) mmol/L Potassium 3.4 L (3.5-5.1) mmol/L Chloride 96 L (98-107) mmol/L Carbon Dioxide 31 H (22-30) mmol/L BUN 16 (7-17) mg/dL Creatinine 0.74 (0.52-1.04) mg/dL Glucose 118 H (74-99) mg/dL Calcium 9.8 (8.4-10.2) mg/dL AST 33 (14-36) U/L ALT 18 (4-34) U/L Alkaline Phosphatase 89 (38-126) U/L Total Protein 7.6 (6.3-8.2) g/dL Albumin 4.5 (3.5-5.0) g/dL Calcium panel 03/01/25 Range/Units 08:26 Calcium 9.8 (8.4-10.2) mg/dL Albumin 4.5 (3.5-5.0) g/dL Pituitary panel 03/01/25 Range/Units 08:26 Sodium 137 (137-145) mmol/L Potassium 3.4 L (3.5-5.1) mmol/L Chloride 96 L (98-107) mmol/L Carbon Dioxide 31 H (22-30) mmol/L BUN 16 (7-17) mg/dL Creatinine 0.74 (0.52-1.04) mg/dL Glucose 118 H (74-99) mg/dL Calcium 9.8 (8.4-10.2) mg/dL Adrenal panel 03/01/25 Range/Units 08:26 Sodium 137 (137-145) mmol/L Potassium 3.4 L (3.5-5.1) mmol/L Chloride 96 L (98-107) mmol/L Carbon Dioxide 31 H (22-30) mmol/L BUN 16 (7-17) mg/dL Creatinine 0.74 (0.52-1.04) mg/dL Glucose 118 H (74-99) mg/dL Calcium 9.8 (8.4-10.2) mg/dL Total Bilirubin 1.0 (0.2-1.3) mg/dL AST 33 (14-36) U/L ALT 18 (4-34) U/L Alkaline Phosphatase 89 (38-126) U/L Total Protein 7.6 (6.3-8.2) g/dL Albumin 4.5 (3.5-5.0) g/dL Assessment and Plan Assessment: 74-year-old female with nonspecific abdominal pain in the lower pelvis CT abdomen and pelvis reviewed no acute findings however patient does have diverticulosis Leukocytosis unexplained, chest x-ray ordered to rule out pneumonia Continue antibiotics IV fluids N.p.o. if feeling better start clear liquid diet tomorrow Time with Patient: Greater than 30
[2025-03-01] MEDS ORDERED: ALBUTEROL NEBULIZED 2.5 MG/3 ML INHALATION PRN (20:04)
[2025-03-01] MEDS: amLODIPine 10 MG TAB PO SCH (22:26)
[2025-03-01] MEDS: ATORVASTATIN 40 MG TAB PO SCH (22:26)
[2025-03-01] MEDS: ONDANSETRON 4 MG/2 ML VIAL IVP PRN (22:33)
--- NOTE | 2025-03-01 23:20 | CT ---
EXAM: CT Angiography Abdomen and Pelvis Without and With Intravenous Contrast CLINICAL HISTORY: abdominal pain, mesenteric ischemia? TECHNIQUE: Axial computed tomographic angiography images of the abdomen and pelvis without and with intravenous contrast. CTDI is 52.2 mGy and DLP is 1499. 9 mGy-cm. This CT exam was performed using one or more of the following dose reduction techniques: automated exposure control, adjustment of the mA and/or kV according to patient size, and/or use of iterative reconstruction technique. MIP reconstructed images were created and reviewed. COMPARISON: No relevant prior studies available. FINDINGS: VASCULATURE: Aorta: Atherosclerotic calcification involving the abdominal aorta. The aorta is normal in caliber. No dissection, stenosis or occlusion. Celiac trunk and mesenteric arteries: The celiac artery is patent without ostial stenosis or occlusion. There is mild narrowing of the proximal superior mesenteric artery with less than 50% luminal stenosis. The mid to distal superior mesenteric artery is patent. The NOEL is patent proximally. Renal arteries: No acute findings. No occlusion or significant stenosis. Iliac arteries: No acute findings. No occlusion or significant stenosis. Lung bases: Unremarkable. No mass. No consolidation. ABDOMEN: Liver: Hepatomegaly with evidence of hepatic steatosis. Gallbladder and bile ducts: Cholecystectomy. No ductal dilation. Pancreas: Unremarkable. No ductal dilation. No mass. Spleen: Unremarkable. No splenomegaly. Adrenals: Unremarkable. No mass. Kidneys and ureters: Unremarkable. No obstructing stones. No hydronephrosis. No solid mass. Stomach and bowel: Asymmetric gastric wall thickening with suggested edema involving the distal body and pyloric channel. No evidence for high-grade gastric obstruction. No bowel obstruction. No asymmetric bowel mucosal abnormality. Mild stool burden. No colonic mucosal abnormality. No diverticulitis. PELVIS: Appendix: No findings to suggest acute appendicitis. Bladder: The bladder is fully distended with excreted contrast. No bladder wall thickening or bladder stones. Reproductive: Status post hysterectomy. ABDOMEN and PELVIS: Intraperitoneal space: Unremarkable. No significant fluid collection. No free air. Bones/joints: No acute fracture. No dislocation. Soft tissues: See above. Lymph nodes: Unremarkable. No enlarged lymph nodes. IMPRESSION: 1. The celiac artery is patent without ostial stenosis or occlusion. There is mild narrowing of the proximal superior mesenteric artery with less than 50% luminal stenosis. The mid to distal superior mesenteric artery is patent. The NOEL is patent proximally. These findings are inconsistent with arterial mesenteric ischemia. 2. Asymmetric gastric wall thickening with suggested edema involving the distal body and pyloric channel. No evidence for high-grade gastric obstruction. Suspect distal gastritis. 3. No bowel obstruction. No asymmetric bowel mucosal abnormality. Mild stool burden. No colonic mucosal abnormality. No diverticulitis. No free intraperitoneal fluid or pneumoperitoneum.
[2025-03-02] MEDS: PANTOPRAZOLE 40 MG/10 ML VIAL IV SCH ×2 (08:39→20:30)
[2025-03-02] MEDS: ESTROGENS, CONJUGATED 0.625 MG TAB PO SCH (08:39)
[2025-03-02] MEDS: ENOXAPARIN 40 MG/0.4 ML SYRINGE SQ SCH (08:39)
[2025-03-02] MEDS: CHLORTHALIDONE 25 MG TAB PO SCH (08:39)
[2025-03-02 09:04] LABS: Basophils # (A) 0.05 X 10*3/uL (0.00-0.10); Basophils % (A) 0.4 %; Eosinophils # (A) 0.14 X 10*3/uL (0.04-0.35); Eosinophils % (A) 1.1 %; HCT 43.3 % (37.2-46.3); HGB 14.1 g/dL (12.0-15.0); Immature Grans, Automated 0.50 %; Lymphocytes # (A) 2.08 X 10*3/uL (0.90-5.00); Lymphocytes % (A) 16.4 %; MCH 29.1 pg (27.0-32.0); MCHC 32.6 g/dL (32.0-37.0); MCV 89.5 FL (80.0-97.0); Monocytes # (A) 0.98 X 10*3/uL (0.20-1.00); Monocytes % (A) 7.7 %; NRBC Per 100 WBC 0 X 10*3/uL (0.00-0.01); Neutrophils # (A) 9.40 X 10*3/uL (1.80-7.70); Neutrophils % (A) 73.9 %; Platelet Count 324 X 10*3/uL (140-440); RBC 4.84 X 10*6/uL (4.10-5.20); RDW 13.8 % (11.5-14.5); WBC 12.71 X 10*3/uL (4.50-10.00)
[2025-03-02 09:05] LABS: ALT 25 U/L (8-44); AST 34 U/L (13-35); Albumin 3.9 g/dL (3.8-4.9); Albumin/Globulin Ratio 1.70 Ratio (1.60-3.17); Alkaline Phosphatase 83 U/L (41-126); Anion Gap 13.50 mmol/L (4.00-12.00); BUN/Creat Ratio 16.00 Ratio (12.00-20.00); Blood Urea Nitrogen 11.2 mg/dL (9.0-27.0); Calcium 8.8 mg/dL (8.7-10.3); Carbon Dioxide 28.5 mmol/L (21.6-31.8); Chloride 100 mmol/L (96-109); Globulin 2.3 g/dL (1.6-3.3); Glucose 110 mg/dL (70-110); Potassium 4.0 mmol/L (3.5-5.5); Sodium 142 mmol/L (135-145); Total Protein 6.2 g/dL (6.2-8.2)
--- NOTE | 2025-03-02 09:55 | P.PN ---
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 Patient is s/p hysterectomy, cholecystectomy. She was able to tolerate some mashed pedis, gravies, banana yesterday evening, reports decreased appetite. No recent weight changes. No specific alleviating or aggravating factors mentioned. She however noted some improvement in pain after an episode of vomiting, no worsening of symptoms with food intake. On arrival afebrile, heart rate in 70s, blood pressure elevated 163/70, satting well on room air. Lab work showed leukocytosis with WBC count 14.2, erythrocytosis 16.4, normal platelet count, normal coagulation panel, sodium normal, potassium 3.4, bicarb 31, creatinine normal, lactic acid 2.5, bilirubin 1.0, normal AST, ALT, ALP, normal lipase and amylase, UA negative for UTI. CT abdomen with contrast was performed and showed sigmoid diverticulosis without evidence of acute diverticulitis, no focal bowel wall thickening,, no lymphadenopathy, small fat filled umbilical hernia. Procalcitonin came back negative patient's symptoms are nonspecific, imaging unremarkable, will check D- dimer due to risk factors for mesenteric ischemia in a 74-year-old female with history of smoking, hyperlipidemia. CT abdomen showed no signs of arterial mesenteric ischemia, mild narrowing of the proximal superior enteric artery with less than 50% luminal stenosis, asymmetric gastric wall thickening with suggested edema involving the distal body and pyloric channel, suspected distal gastritis. No obstruction. Surgery recommended n.p.o., advance diet as tolerated. 03/02/2025: Patient was seen examined at bedside, no acute events overnight. She reports dry heaves but no more vomiting, has not had a bowel movement. Abdominal pain has improved. Patient was sitting in the recliner. She feels ready to try diet, CLD ordered. Discussed with RN. Patient will be continued on IV Protonix, surgery following. She is afebrile with normal blood pressure, satting well on room air. Leukocytosis is improving to 12.7 now, hemoglobin imp roving, normal, CMP unremarkable. Pertinent positives and negatives as discussed above, a complete review of systems was performed and all other systems are negative. Vitals Signs Reviewed. General: [nontoxic], [no distress], [appears at stated age] Derm: [warm], [dry] Head: [atraumatic], [normocephalic], [symmetric] Eyes: [EOMI], [no lid lag], [anicteric sclera] Mouth: [no lip lesion], [mucus membranes moist] Cardiovascular: [S1S2 reg], [no murmur] Lungs: [CTA bilateral], [no rhonchi, no rales] , [no accessory muscle use] Abdominal: [soft], mild RLQ tenderness, normal BS], [no guarding], [no appreciable organomegaly] Ext: [no gross muscle atrophy], edema], [no contractures] Neuro: [ CN II-XI grossly intact], [no focal neuro deficits] Psych: [Alert], [oriented], [appropriate affect] Assessment and Plan: Acute lower abdominal pain Diverticulosis without evidence of diverticulitis Possible gastritis 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% Leukocytosis Erythrocytosis, resolved Hypokalemia, resolved Elevated lactic acid, resolved Nausea and vomiting - No CT evidence of acute intra-abdominal pathology - General Surgery consulted, appreciate recommendations -Continue with CLD, advance as tolerated -Protonix 40 IV daily - Decrease LR to 50 cc/h -CBC and CMP in the morning -Symptomatic nausea and vomiting management with Zofran 4 mg IV every 8 hours -Recommend follow-up with GI as outpatient for possible EGD for further evaluation of gastritis, avoid NSAIDs Hypertension Hyperlipidemia - Resume home amlodipine 10, aspirin 81, Lipitor 40, chlorthalidone 25 daily Tobacco use disorder, requested nicotine patch, discussed importance of smoking cessation CODE STATUS: DNR/DNI DVT prophylaxis: Lovenox Anticipated discharge date: 03/[address]: Home Objective - Vital Signs Vital signs: Vital Signs Temp 97.3 F L 03/02/25 08:30 Pulse 72 03/02/25 08:30 Resp 20 03/02/25 08:30 BP 118/73 03/02/25 08:30 Pulse Ox 96 03/02/25 08:30 FiO2 Intake & Output 03/01/25 03/02/25 03/02/25 18:59 06:59 18:59 Weight 77.111 kg Other: Voiding Method Toilet # Voids 2 1 - Labs CBC & Chem 7: 03/02/25 03:35 03/02/25 03:35 Labs: Abnormal Lab Results - Last 24 Hours (Table) 03/01/25 03/01/25 03/01/25 Range/Units 08:26 10:11 13:08 WBC 14.47 H (4.50-10.00) 10*3/uL MPV 9.3 L (9.5-12.2) fL Immature Gran # 0.06 H (0.00-0.04) 10*3/uL Neutrophils # 11.40 H (1.80-7.70) 10*3/uL D-Dimer 1.15 H (<0.60) mg/L FEU Anion Gap (4.00-12.00) mmol/L Ur Specific [place] 1.050 H (1.001-1.035) Urine Blood Trace H (Negative) Urine Mucus Rare H (None) /hpf 03/02/25 03/02/25 Range/Units 03:35 03:35 WBC 12.71 H (4.50-10.00) 10*3/uL MPV (9.5-12.2) fL Immature Gran # 0.06 H (0.00-0.04) 10*3/uL Neutrophils # 9.40 H (1.80-7.70) 10*3/uL D-Dimer (<0.60) mg/L FEU Anion Gap 13.50 H (4.00-12.00) mmol/L Ur Specific [place] (1.001-1.035) Urine Blood (Negative) Urine Mucus (None) /hpf
[2025-03-02] MEDS: ASPIRIN 81 MG PO SCH (20:30)
--- NOTE | 2025-03-02 21:02 | P.PN ---
Subjective Patient seen and evaluated at bedside. Patient slowly improving, denies nausea, vomiting, fevers, chills, shortness of breath or chest pain. Objective - Vital Signs Vital signs: Vital Signs Temp 98.2 F 03/02/25 18:41 Pulse 74 03/02/25 18:41 Resp 17 03/02/25 18:41 BP 117/76 03/02/25 18:41 Pulse Ox 97 03/02/25 18:41 FiO2 Intake & Output 03/02/25 03/02/25 03/03/25 06:59 18:59 06:59 Intake Total 840 Balance 840 Intake: Oral 840 Other: Voiding Method Toilet # Voids 2 1 # Bowel Movements 1 - Exam gen: nad cv rrr pul: non labored breathing abd: soft, mildly tender to palpation, no guarding or rebound tenderness - Labs CBC & Chem 7: 03/02/25 03:35 03/02/25 03:35 Labs: Abnormal Lab Results - Last 24 Hours (Table) 03/02/25 03/02/25 Range/Units 03:35 03:35 WBC 12.71 H (4.50-10.00) X 10*3/uL Immature Gran # 0.06 H (0.00-0.04) X 10*3/uL Neutrophils # 9.40 H (1.80-7.70) X 10*3/uL Anion Gap 13.50 H (4.00-12.00) mmol/L Assessment and Plan Assessment: 74-year-old female with nonspecific abdominal pain in the lower pelvis CT abdomen and pelvis reviewed no acute findings however patient does have diverticulosis CTA revealed gastritis White count trending down Continue conservative management Time with Patient: Less than 30
[2025-03-03 07:23] VITALS: BP 111/72; PULSE 74; RESP 16; TEMP 97.6
[2025-03-03 10:45] LABS: Basophils # (A) 0.06 X 10*3/uL (0.00-0.10); Basophils % (A) 0.6 %; Eosinophils # (A) 0.22 X 10*3/uL (0.04-0.35); Eosinophils % (A) 2.4 %; HCT 39.9 % (37.2-46.3); HGB 13.3 g/dL (12.0-15.0); Immature Grans, Automated 0.30 %; Lymphocytes # (A) 2.16 X 10*3/uL (0.90-5.00); Lymphocytes % (A) 23.4 %; MCH 29.8 pg (27.0-32.0); MCHC 33.3 g/dL (32.0-37.0); MCV 89.5 FL (80.0-97.0); Monocytes # (A) 0.90 X 10*3/uL (0.20-1.00); Monocytes % (A) 9.7 %; NRBC Per 100 WBC 0 X 10*3/uL (0.00-0.01); Neutrophils # (A) 5.87 X 10*3/uL (1.80-7.70); Neutrophils % (A) 63.6 %; Platelet Count 307 X 10*3/uL (140-440); RBC 4.46 X 10*6/uL (4.10-5.20); RDW 13.6 % (11.5-14.5); WBC 9.24 X 10*3/uL (4.50-10.00)
[2025-03-03 11:07] LABS: ALT 18 U/L (8-44); AST 29 U/L (13-35); Albumin 3.3 g/dL (3.8-4.9); Albumin/Globulin Ratio 1.50 Ratio (1.60-3.17); Alkaline Phosphatase 68 U/L (41-126); Anion Gap 10.80 mmol/L (4.00-12.00); BUN/Creat Ratio 15.38 Ratio (12.00-20.00); Blood Urea Nitrogen 12.3 mg/dL (9.0-27.0); Calcium 8.5 mg/dL (8.7-10.3); Carbon Dioxide 31.2 mmol/L (21.6-31.8); Chloride 96 mmol/L (96-109); Globulin 2.2 g/dL (1.6-3.3); Glucose 105 mg/dL (70-110); Potassium 3.3 mmol/L (3.5-5.5); Sodium 138 mmol/L (135-145); Total Protein 5.5 g/dL (6.2-8.2)
--- NOTE | 2025-03-03 11:17 | P.PN ---
Subjective Progress Note Date: 03/03/25 SURGICAL PROGRESS NOTE CHIEF COMPLAINT: Abdominal pain, vomiting and diarrhea HISTORY OF PRESENT ILLNESS: Patient reports abdominal pain has resolved. She did have a semiformed stool yesterday. Diarrhea has resolved. She is tolerating diet. Denies any nausea or vomiting. Afebrile. WBC normalized at 9.24 PHYSICAL EXAM: VITAL SIGNS: Reviewed. GENERAL: Well-developed in no acute distress. ABDOMEN: Soft. Nondistended. Nontender. NEUROLOGIC: Alert and oriented. Cranial nerves II through XII grossly intact. ASSESSMENT: 74-year-old female with nonspecific abdominal pain in the lower pelvis CT abdomen and pelvis reviewed no acute findings however patient does have diverticulosis CTA revealed gastritis PLAN: - Abdominal pain improved. Tolerating diet. Continue omeprazole for gastritis - Discussed with patient smoking cessation - Patient can be discharged from surgical standpoint Physician Car Salesperson note has been reviewed by physician. Signing provider agrees with the documented findings, assessment, and plan of care. Objective - Vital Signs Vital signs: Vital Signs Temp 97.6 F 03/03/25 07:00 Pulse 74 03/03/25 07:00 Resp 16 03/03/25 07:00 BP 111/72 03/03/25 07:00 Pulse Ox 98 03/03/25 07:00 FiO2 Intake & Output 03/02/25 03/03/25 03/03/25 18:59 06:59 18:59 Intake Total 840 118 Balance 840 118 Intake: Oral 840 118 Other: Voiding Method Toilet # Voids 1 1 1 # Bowel Movements 1 - Labs CBC & Chem 7: 03/03/25 05:44 03/03/25 05:44 Labs: Abnormal Lab Results - Last 24 Hours (Table) 03/03/25 Range/Units 05:44 Potassium 3.3 L (3.5-5.5) mmol/L Calcium 8.5 L (8.7-10.3) mg/dL Total Bilirubin 0.2 L (0.3-1.2) mg/dL Total Protein 5.5 L (6.2-8.2) g/dL Albumin 3.3 L (3.8-4.9) g/dL Albumin/Globulin Ratio 1.50 L (1.60-3.17) Ratio
--- NOTE | 2025-03-03 12:04 | P.DS ---
Providers Date of admission: 03/01/25 11:17 Expected date of discharge: 03/03/25 Attending physician: Rito Garza Consults: 03/01/25 11:17 Consult Physician Routine Consulting Provider: Pedro Irvin Consult Reason/Comments: intractable abd pain Do you want consulting provider notified?: Yes Primary care physician: [facility] Hospital Course: 74-year-old female with past medical history of hypertension, hyperlipidemia, tobacco use disorder, known pulmonary nodule, who presented to the ER on 03/01/2025 with lower abdominal pain. In the ED she underwent extensive evaluation. BP 118/73, RR 20, HR 72, T 97.3F, 96% on RA. Labs significant for WBC 14.47, D-Dimer 1.15, K 3.4, Cl 96, bicarb 31, glu 118, Lactic acid 2.5-1.6, Amylase 62, Lipase 230, Procal 0.06, UA neg LE or nitrite. CT AP sigmoid diverticulosis. EKG sinus rhythm with rate of 63. CXR neg. Surgery consulted, CTA AP showed 50% stenosis of the celiac artery, gastric wall thickening. Her pain improved with analgesics, IV hydration and Protonix IV. 03/03 Patient was seen and examined. No abdominal pain. No complaints. CBC and CMP significant for K 3.3, T. Bili 0.2, alb 3.3. Discharge Plan: Abd pain likely due to gastritis. Discussed what food to avoid. Trial of Protonix BID for 30 days. 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 Follow up with PCP within 1-2 days of discharge. 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 Patient Condition at Discharge: Stable Plan - Discharge Summary New Discharge Prescriptions: New Pantoprazole [Protonix] 40 mg PO BID #60 tab Continue Estrogens, Conjugated [Premarin] 0.625 mg PO DAILY Albuterol Sulfate [Ventolin HFA] 2 puff INHALATION RT-QID PRN PRN Reason: Shortness Of Breath amLODIPine [Norvasc] 10 mg PO HS Chlorthalidone [Hygroton] 25 mg PO DAILY Aspirin EC [Ecotrin Low Dose] 81 mg PO HS Atorvastatin [Lipitor] 40 mg PO HS Discharge Medication List Albuterol Sulfate [Ventolin HFA] 2 puff INHALATION RT-QID PRN 03/01/25 [History] Aspirin EC [Ecotrin Low Dose] 81 mg PO HS 03/01/25 [History] Atorvastatin [Lipitor] 40 mg PO HS 03/01/25 [History] Chlorthalidone [Hygroton] 25 mg PO DAILY 03/01/25 [History] Estrogens, Conjugated [Premarin] 0.625 mg PO DAILY 03/01/25 [History] amLODIPine [Norvasc] 10 mg PO HS 03/01/25 [History] Pantoprazole [Protonix] 40 mg PO BID #60 tab 03/03/25 [Rx] Follow up Appointment(s)/Referral(s): Drew Ghotra DO [Primary Care Provider] - 1-2 days Patient Instructions/Handouts: Gastritis (DC) Discharge Disposition: HOME SELF-CARE
== END 2025-03-03 11:58 | disposition home or self-care (01) ==
LOC: EC 07:52 → 6NMEDSUR 11:17
PROVIDERS: ADMIT Student in an Organized Health Care Education/Training Program; ATTEND Student in an Organized Health Care Education/Training Program
DX: K29.70 Gastritis, unspecified, without bleeding (principal); K57.30 Diverticulosis of large intestine without perforation or abscess without bleeding; I77.1 Stricture of artery; E86.0 Dehydration; R19.7 Diarrhea, unspecified; D72.829 Elevated white blood cell count, unspecified; D75.1 Secondary polycythemia; E87.6 Hypokalemia; E87.20 Acidosis, unspecified; I10 Essential (primary) hypertension; E78.5 Hyperlipidemia, unspecified; F17.200 Nicotine dependence, unspecified, uncomplicated; Z66 Do not resuscitate; Z90.49 Acquired absence of other specified parts of digestive tract; Z79.82 Long term (current) use of aspirin; Z79.899 Other long term (current) drug therapy; Z88.5 Allergy status to narcotic agent; Z88.6 Allergy status to analgesic agent
CPT/HCPCS: 96376 ×4; 96361; 96374; 96375; 99285; 36415; 94760 ×2; 93005; 85379; 80053 ×3; 82150; 83605; 83690; 85025 ×3; 85610; 85730; 81001; 84145; 71046; 74177; 74174; G0378 ×3; S4990 ×3; J2405; J1885; J1171; Q9967 ×2; J2470 ×3